=== PATIENT | male | born 1950 | race Two or more races ===

== ENCOUNTER → 2025-03-11 | Outpatient (CLI) | payer MEDICARE, MEDICAID, SELFPAY ==
[2025-03-11 09:43] LABS: Basophils % (Auto) 0 % (0-2.5); Eosinophils # (Auto) 0.1 Thou/mm3 (0.0-0.5); Eosinophils % (Auto) 2 % (0-10); Hematocrit 43.6 % (41.0-53.0); Hemoglobin 14.9 g/dL (13.5-16.0); Immature Granulocytes % (Auto) 0 % (0-0); Immature Granulocytes Auto 0.01 Thou/mm3 (0.00-0.00); Lymphocytes # (Auto) 1.6 Thou/mm3 (1.0-4.8); Lymphocytes % (Auto) 29 % (10-50); Mean Corpuscular HGB Conc 34.2 g/dl (31.0-37.0); Mean Corpuscular Hemoglobin 31.8 pg (25.0-35.0); Mean Corpuscular Volume 93 fL (80-100); Monocytes # (Auto) 0.5 Thou/mm3 (0.0-0.8); Monocytes % (Auto) 9 % (0-12); Neutrophils # (Auto) 3.2 Thou/mm3 (1.8-7.7); Neutrophils % (Auto) 60 % (37-80); Nucleated Red Blood Cell % 0 /100 WBC (0); Platelet Count 135 Thou/mm3 (140-440); RDW Standard Deviation 45.8 fL (35.1-43.9); Red Blood Count 4.68 Miln/mm3 (4.50-5.90); White Blood Count 5.3 Thou/mm3 (3.8-10.6)
[2025-03-11 10:07] LABS: Alanine Aminotransferase 29 U/L (10-49); Albumin, Serum 4.3 gm/dL (3.4-4.8); Alkaline Phosphatase 46 U/L (46-116); Anion Gap 10 (7-16); Aspartate Amino Transferase 25 U/L (0-34); BUN/Creatinine Ratio 20 Ratio (12-20); Bilirubin,Direct 0.1 mg/dL (0.0-0.3); Bilirubin,Total 0.5 mg/dL (0.3-1.2); Blood Urea Nitrogen 18 mg/dL (9-23); Calcium 8.8 mg/dL (8.3-10.6); Carbon Dioxide 23.9 mMol/L (20.0-31.0); Cardiac Risk Estimate 3.7 RATIO (4.0-6.7); Chloride 106 mMol/L (98-107); Cholesterol 163 mg/dL (132-200); Creatinine (Component) 0.9 mg/dL (0.6-1.3); Glucose 116 mg/dL (74-106); HDL Cholesterol 44 mg/dL (40-60); LDL Cholesterol,Calculated 73 mg/dL (0-130); Osmolality,Calculated 282 (275-295); Sodium 140 mMol/L (136-145); Total Protein 7.4 gm/dL (5.7-8.2); Triglycerides 232 mg/dL (30-150); eGFR > 60 See Note
== END | disposition home or self-care (01) ==
LOC: COPL 08:50
PROVIDERS: PCP Family Medicine; Referring Provider Family Medicine; Visit Provider Family Medicine
DX: Z12.11 Encounter for screening for malignant neoplasm of colon (principal); E78.5 Hyperlipidemia, unspecified; I10 Essential (primary) hypertension; Z12.12 Encounter for screening for malignant neoplasm of rectum
CPT/HCPCS: 36415; 80048; 80061; 80076; 85025

== ENCOUNTER → 2025-04-09 | Outpatient (CLI) | payer MEDICARE, MEDICAID, SELFPAY ==
[2025-04-13 07:46] LABS: Fecal Globin Result NOT DETECTED (NOT DETECTED)
== END | disposition home or self-care (01) ==
LOC: SLDO 08:47
PROVIDERS: Referring Provider Family Medicine; Visit Provider Family Medicine
DX: Z12.11 Encounter for screening for malignant neoplasm of colon (principal); Z12.12 Encounter for screening for malignant neoplasm of rectum
CPT/HCPCS: 82274; G0328